=== PATIENT | female | born 2005 | race African-American/Black ===

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

== ENCOUNTER 2023-01-08 04:44 | Emergency (ER) | payer OTHER ==
[~2023-01-08] VITALS: Ht 154.9 cm; Wt 68.0 kg
[2023-01-08 04:54] VITALS: BP 110/77; PULSE 74; RESP 15; TEMP 98.4
[2023-01-08] MEDS ORDERED: IBUP-1492 PO (05:29)
[2023-01-08] MEDS ORDERED: IBUPROFEN 600 MG TABLET PO ONE (05:30)
== END 2023-01-08 05:57 | disposition home or self-care (01) ==
LOC: EMS 04:53
DX: M54.50 Low back pain, unspecified (principal); G43.909 Migraine, unspecified, not intractable, without status migrainosus; V49.88XA Car occupant (driver) (passenger) injured in other specified transport accidents, initial encounter; Y93.89 Activity, other specified; Y92.481 Parking lot as the place of occurrence of the external cause; Y99.8 Other external cause status
CPT/HCPCS: 99282; Z7502; Z7610